=== PATIENT | male | born 1960 | race Caucasian/White ===

== ENCOUNTER → 2017-11-24 | Outpatient (REF) ==
[~2017-11-24] MED LIST: CEPH500C24 PO; LOR5/325 PO; PRED-1 PO
== END ==
LOC: LAB 00:14 → EDSTATUS 00:19 → LAB 00:25
PROVIDERS: ATTEND Nurse Practitioner
DX: Z02.83 Encounter for blood-alcohol and blood-drug test (principal)
CPT/HCPCS: 99001

== ENCOUNTER → 2018-03-18 | Outpatient (REF) ==
--- NOTE | 2018-03-18 15:53 | RADIOLOGY IMAGING REPORT ---
FACILITY: [facility] PATIENT NAME: Colt Richardson : 1960 MR: [id number] V: [id number] EXAM DATE: ORDERING PHYSICIAN: LISBET HENSON TECHNOLOGIST: Location: [facility] Patient: Colt Richardson : 1960 Visit/Account:[id number] Date of Sevice: 03/18/2018 Knee 3 views bilateral: HISTORY: Bilateral knee pain times years. Likely arthritis secondary to overuse. COMPARISON: None. FINDINGS: 3 views were obtained of each knee. Left: There is severe narrowing of medial joint space compartment of the knee, lateral joint space co mpartment is widened. There is angulation at the knee. Osteophytes project off the femoral condyle and tibial plateau. There are also osteophytes projecting off the margins of the patella. Bipartite patella is noted. Patellofemoral joint is mildly narrowed laterally. Bones are osteopenic. Suprap atellar joint effusion is present. Right: There is severe narrowing of both the medial and lateral joint space compartment of the knee. There is medial subluxation of the femur relative to the proximal tibia and remodeling of the latera l tibial plateau. Osteophytes project off the margins of the femoral condyles and tibial plateaus. There is also osteophytes projecting off the patella. Patella is subluxed slightly lateral and there is narrowing of the lateral patellar facet. Suprapatellar joint effusion is present. Amorphous calcification posterior to the knee could reflect some hypertrophic chondrocalcinosis could potentially reflect loose bodies within the knee. IMPRESSION: 1. Moderate to severe osteoarthritic changes as described above changes are more severe on the right than left. 2. Bilateral suprapatellar joint effusions. 3. Query loose bodies in the right knee. Report Dictated By: Della Contreras MD at 03/18/2018 3:43 PM Report E-Signed By: Della Contreras MD at 03/18/2018 3:48 PM WSN:[id number]
== END ==
LOC: RAD 14:40
PROVIDERS: ATTEND Nurse Practitioner Family
DX: M17.0 Bilateral primary osteoarthritis of knee (principal); M25.461 Effusion, right knee; M25.462 Effusion, left knee